=== PATIENT | female | born 1980 | race African-American/Black ===

== ENCOUNTER → 2017-09-09 | Outpatient (CLI) | payer MEDICAID ==
--- NOTE | 2017-09-09 12:19 | RADIOLOGY REPORT (SQ) ---
EXAM DESCRIPTION: U/S ABDOMEN LTD W/DOPPLER COMPLETED DATE/TIME: 09/09/2017 10:47 am REASON FOR STUDY: R10.13 EPIGASTRIC PAIN R10.13 EPIGASTRIC PAIN COMPARISON: None. TECHNIQUE: Dynamic and static grayscale images acquired of the abdomen and recorded on PACS. Additio nal selected color Doppler and spectral images recorded. LIMITATIONS: None. FINDINGS: PANCREAS: Midline pancreas unremarkable LIVER: Liver is hypoechoic which could be seen in inflammation. No gross intrahepatic biliary ductal dilatation. No focal masses. LIVER VASCULATURE: Normal directional flow of the main portal vein and hepatic veins. GALLBLADDER: No shadowing stones. There is minimal sludge in the dependent portion of the gallbladde r. No gallbladder wall thickening or pericholecystic fluid. ULTRASOUND-DETECTED WALTER'S SIGN: Negative. INTRAHEPATIC DUCTS AND COMMON DUCT: CBD and intrahepatic ducts normal caliber. No filling defects. INFERIOR VENA CAVA: Normal flow. AORTA: No aneurysm. RIGHT KIDNEY: Normal size. Normal echogenicity. No solid or suspicious masses. No hydronephrosis. No calcifications. PERITONEAL AND RIGHT PLEURAL SPACE: No ascites or effusions. OTHER: No other significant findings. IMPRESSION: Minimal sludge in the gallbladder. No gallbladder wall thickening or pericholecystic fl uid Decreased echogenicity of the liver parenchyma, question hepatitis or diffuse liver inflammatory curran ge. TECHNICAL DOCUMENTATION: JOB ID: [id number] [employer]- All Rights Reserved Reading location - IP/workstation name: [email or web address]
== END ==
LOC: RAD 10:36
PROVIDERS: ATTEND Internal Medicine
DX: R10.13 Epigastric pain (principal)
CPT/HCPCS: 76705; 93976